=== PATIENT | female | born 1995 | race Caucasian/White ===

== ENCOUNTER 2018-03-02 11:33 | Emergency (ER) | payer OTHER ==
[2018-03-02 12:21] VITALS: BP 131/76
--- NOTE | 2018-03-02 12:22 | UC ---
Throat Pain/Nasal Slade HPI - HPI Summary HPI Summary: 22 y/o female presents to the urgent care c/o left upper sinus and jaw pain w/ nasal congestion and sinus pressure since 02/27/2018. Pt also states left ear pain. clear nasal discharge w/ +PND. She started to take Angelique-[place] sinus and cough and nasal congestion is improving. However dental pain is 9/10. Pt denies fever, trismus, SOB, cehst pain, abdominal pain, N/v/D. Pt is UTD w/ all vaccines for her age. - History of Current Complaint Chief Complaint: UCRespiratory Stated Complaint: SINUS PRESSURE Time Seen by Provider: 03/02/18 12:21 Hx Obtained From: Patient Hx Last Menstrual Period: Depo-Provera Onset/Duration: Gradual Onset, Lasting Days - 5 days, Still Present, Worse Since - today Severity: Moderate Pain Intensity: 9 Pain Scale Used: 0-10 Numeric Cough: Productive - clear phlegm Associated Signs & Symptoms: Positive: Sinus Discomfort, Nasal Discharge - clear Related History: Seasonal Allergies - Epiglottits Risk Factors Epiglottis Risk Factors: Negative - Allergies/Home Medications Allergies/Adverse Reactions: Allergies Allergy/AdvReac Type Severity Reaction Status Date / Time amoxicillin Allergy Hives Verified 03/02/18 12:16 Home Medications: Home Medications D-Methorphan/PE/Acetaminophen [Angelique-[place] Plus Sinus-Cough] 1 cap PO Q4H PRN 03/02/18 [History Confirmed 03/02/18] medroxyPROGESTERone ACETATE* [DEPO-Provera*] 150 mg IM Q21D 03/02/18 [History Confirmed 03/02/18] PMH/Surg Hx/FS Hx/Imm Hx Previously Healthy: Yes - Pt denies PMHX - Surgical History Surgical History: None - Family History Known Family History: Positive: Diabetes - Social History Occupation: Student Lives: With Family Alcohol Use: Rare Substance Use Type: None Smoking Status (MU): Heavy Every Day Tobacco Smoker Type: Cigarettes Amount Used/How Often: 1/2 PPD Length of Time of Smoking/Using Tobacco: Since Age 18 Household Exposure Type: Cigarettes - Immunization History Vaccination Up to Date: Yes Review of Systems Constitutional: Negative Skin: Negative Eyes: Negative ENT: Dental Pain - left upper posterior jaw w/ a molar cavity, Sore Throat, Nasal Discharge - clear, Sinus Congestion, Sinus Pain/Tenderness Respiratory: Negative Cardiovascular: Negative Gastrointestinal: Negative Genitourinary: Negative Motor: Negative Neurovascular: Negative Musculoskeletal: Negative Neurological: Negative Psychological: Negative Is Patient Immunocompromised?: No All Other Systems Reviewed And Are Negative: Yes Physical Exam - Summary Physical Exam Summary: General: Well-Appearing, No Pain Distress, Well-Nourished female adolescent sitting comfortably w/o any apparent pain distress. Vital Signs Reviewed: Yes Eyes: Positive: Conjunctiva Clear - PERRLA, EOMI, ENT: Positive: Normal ENT inspection, Hearing grossly normal, Pharynx normal, TMs normal - B/L external ear canals clear,. Negative: Tonsillar swelling, Tonsillar exudate, Trismus Dental: Positive: Gross Decay/Caries @ - tooth #15, and dental Abscess w/ gingival swelling and erythema, tender to percussion. involves tissue surrounding the molar #15., Cervical Lymphadenopathy - anterior- broken, or decayed teeth, gingival swelling and erythema, tender to percussion. Periodontal : involves tissue surrounding the teeth. Periapical: Neck: Positive: Supple Respiratory: Positive: Chest non-tender, Lungs clear, Normal breath sounds, No respiratory distress Cardiovascular: Positive: RRR, No Murmur, Pulses Normal, Brisk Capillary Refill Abdomen Description: Positive: Nontender, No Organomegaly, Soft. Negative: CVA Tenderness (R), CVA Tenderness (L) Bowel Sounds: Positive: Present Musculoskeletal: Positive: Strength Intact, ROM Intact, No Edema Neurological Exam: Normal Psychological Exam: Normal Skin Exam: Normal Triage Information Reviewed: Yes Vital Signs: Initial Vital Signs Temp 98.4 F 03/02/18 12:14 Pulse 62 03/02/18 12:14 Resp 16 03/02/18 12:14 BP 131/76 03/02/18 12:14 Pulse Ox 100 03/02/18 12:14 Throat Pain/Nasal Course/Dx - Differential Dx/Diagnosis Provider Diagnoses: 1- dental Abscess aroun molar #. 2- Rhinosinusitis Discharge - Sign-Out/Discharge Documenting (check all that apply): Patient Departure - D/c home All imaging exams completed and their final reports reviewed: No Studies - Discharge Plan Condition: Stable Disposition: HOME Prescriptions: Clindamycin Cap(NF) [Clindamycin Cap 300 mg Cap(NF)] 300 mg PO TID #30 cap Fluticasone NASAL SPRAY 50MCG* [Flonase NASAL SPRAY 50MCG*] 2 spray BOTH NARES DAILY #1 btl Ibuprofen TAB* [Motrin TAB* 600 MG] 600 mg PO Q6H PRN #30 tab PRN Reason: Pain Lidocaine 2% VISCOUS* [Xylocaine 2% Viscous*] 15 ml SWISH SPIT Q4H PRN #1 btl PRN Reason: dental pain Patient Education Materials: Dental Abscess (ED), Rhinosinusitis (ED) Referrals: Power Fung DO [Primary Care Provider] - 3 Days Additional Instructions: 1-Please take full course of antibiotic to avoid resistance. 2- Take Ibuprofen PO q6-8hrs prn as directed after meals to alleviate pain and swelling. Use viscous Lidocaine as directed to alleviate pain. 3- F/u with your Dentist or Dental List provided as soon as possible for further treatment. 4-Use the flonase nasal spray as directed and use Saline drops as directed to clear sinuses. 5- If symptoms do not improve or worsen please return to the urgent care or f/u with your PCP in 3 days for further evaluation and treatment - Billing Disposition and Condition Condition: STABLE Disposition: Home
== END 2018-03-02 13:01 | disposition home or self-care (01) ==
LOC: UCCORT 11:33
DX: K04.7 Periapical abscess without sinus (principal); J32.9 Chronic sinusitis, unspecified; Z88.0 Allergy status to penicillin; F17.210 Nicotine dependence, cigarettes, uncomplicated
CPT/HCPCS: 99202; G0463